=== PATIENT | male | born 1950 | race Caucasian/White ===

== ENCOUNTER 2022-05-18 14:43 | Emergency (ER) | payer OTHER, MEDICARE ==
[2022-05-18] MEDS ORDERED: predniSONE 20 MG Tab PO ONE (17:08)
== END 2022-05-18 17:49 | disposition home or self-care (01) ==
LOC: JP.ED 14:43
DX: G51.0 Bell's palsy (principal); Z88.8 Allergy status to other drugs, medicaments and biological substances; Z86.16 Personal history of COVID-19
CPT/HCPCS: 36415; 70450; 80048; 85025; 86618; 99284; J7512

== ENCOUNTER 2024-06-16 02:10 | Emergency (ER) | payer OTHER, MEDICARE ==
[2024-06-16] MEDS: Aspirin 81 MG Tab.Chew PO ONE (02:29)
[2024-06-16 02:32] LABS: BASOPHILS ABSOLUTE AUTO 0.03 K/uL (0.00-0.10); BASOPHILS PERCENT AUTO 0.4 % (0.1-1.3); EOSINOPHILS ABSOLUTE AUTO 0.58 K/uL (0.00-0.40); EOSINOPHILS PERCENT AUTO 7.6 % (0.0-5.4); HEMATOCRIT 40.7 % (38.4-49.7); HEMOGLOBIN 13.7 g/dL (12.9-16.9); IMMATURE GRAN ABSOLUTE AUTO 0.03 K/uL (0.00-0.23); IMMATURE GRAN PERCENT AUTO 0.4 % (0.0-0.7); LYMPHOCYTES ABSOLUTE AUTO 2.08 K/uL (0.8-3.3); LYMPHOCYTES PERCENT AUTO 27.2 % (11.4-47.7); MEAN CORPUSCULAR HEMOGLOBIN 30.6 pg (31.6-35.5); MEAN CORPUSCULAR HGB CONC 33.7 g/dL (31.6-35.5); MEAN CORPUSCULAR VOLUME 90.8 fL (81.4-99.0); MONOCYTES ABSOLUTE AUTO 0.73 K/uL (0.20-0.90); MONOCYTES PERCENT AUTO 9.5 % (3.3-12.6); NEUTROPHILS PERCENT AUTO 54.9 % (40.0-78.1); PLATELET COUNT,PLT 161 K/uL (130-375); RED BLOOD CELL COUNT 4.48 M/uL (4.14-5.76); WHITE BLOOD CELL COUNT,WBC 7.7 K/uL (3.2-11.0)
[2024-06-16 02:44] LABS: ANION GAP 11.2 mmol/L (5.0-14.0); CALCIUM 8.7 mg/dL (8.5-10.1); CREATININE 2.1 mg/dL (0.8-1.3); EST CRCL DRUG DOSING (CG) 27.85 mL/min; POTASSIUM,K 3.9 mmol/L (3.6-5.2)
[2024-06-16 02:45] LABS: TROPONIN I HIGH SENSITIVITY 62.4 pg/mL (<=60.3)
[2024-06-16] MEDS: Heparin Sodium 5,000 Units/ML Vial IVPUSH ONE (02:53)
[2024-06-16] MEDS: Heparin Sodium/D5W 25,000 UNITS/500 ML BAG IV SCH (02:54)
[2024-06-16] MEDS: Sodium Chloride 0.9% 1,000 ML IV SCH (02:55)
[2024-06-16] MEDS: Heparin Sodium/D5W 500 ML ONE (02:56)
[2024-06-16] MEDS: Heparin Sodium 5,000 Units/ML Vial ONE (02:57)
== END 2024-06-16 03:37 | disposition other institution (70) ==
LOC: JP.ED 02:10
DX: I24.9 Acute ischemic heart disease, unspecified (principal); Z86.16 Personal history of COVID-19; Z79.899 Other long term (current) drug therapy; Z88.8 Allergy status to other drugs, medicaments and biological substances; Z88.1 Allergy status to other antibiotic agents; Z88.5 Allergy status to narcotic agent
CPT/HCPCS: 36415; 71045; 80048; 84484; 85025; 85379; 93005; 96365; 99285; A9270; J1644; J7030